=== PATIENT | female | born 1990 | race African-American/Black ===

== ENCOUNTER 2019-02-12 10:48 | Emergency (ER) | payer OTHER ==
[~2019-02-12] VITALS: Ht 162.6 cm; Wt 66.2 kg
[2019-02-12 12:00] VITALS: BP 115/56
--- NOTE | 2019-02-12 13:23 | PHYS DOC ---
Past Medical History Past Medical History: UTI, Other Additional Past Medical Histor: bladder infection and bacterial vaginosis Past Surgical History: No Surgical History Additional Information: Denies smoking Alcohol Use: None Drug Use: None Adult General Chief Complaint Chief Complaint: ABDOMINAL PAIN IN [facility] Patient is a 28 year old female who presents with complaining of lower abdominal pain and vaginal bleeding during . Patient is , A 2 with LMP of December 23 with 1 home positive test and stated she had positive test when she was checked at work for drug screen yesterday. Patient complaining of lower abdominal pain since yesterday as a crampy pain and vaginal spotting that getting heavier today. Patient rated her pain as a moderate pain and denies taking any pain medication. Patient complaining of one episode of vomiting yesterday. Patient denies urinary symptoms, vaginal discharge, dizziness and palpitation, chest pain and shortness of breath. Review of Systems Review of Systems Constitutional: Denies fever or chills [] Eyes: Denies change in visual acuity, redness, or eye pain [] HENT: Denies nasal congestion or sore throat [] Respiratory: Denies cough or shortness of breath [] Cardiovascular: No additional information not addressed in HPI [] GI: Reports abdominal pain, nausea, vomiting, denies bloody stools or diarrhea [ ] : Denies dysuria or hematuria [] Musculoskeletal: Denies back pain or joint pain [] Integument: Denies rash or skin lesions [] Neurologic: Denies headache, focal weakness or sensory changes [] Endocrine: Denies polyuria or polydipsia [] All other systems were reviewed and found to be within normal limits, except as documented in this note. Allergies Allergies Allergies Coded Allergies Type Severity Reaction Last Updated Verified No Known Drug Allergies 12/28/13 No Physical Exam Physical Exam Constitutional: Well developed, well nourished, no acute distress, non-toxic appearance. [] HENT: Normocephalic, atraumatic. Eyes: PERRLA, EOMI, conjunctiva normal, no discharge. [] Neck: Normal range of motion, no tenderness, supple, no stridor. [] Cardiovascular:Heart rate regular rhythm, no murmur [] Lungs & Thorax: Bilateral breath sounds clear to auscultation [] Abdomen: Bowel sounds normal, soft, no tenderness, no masses, no pulsatile masses. Patient did not want to have vaginal exam.[] Skin: Warm, dry, no erythema, no rash. [] Back: No tenderness, no CVA tenderness. [] Extremities: No tenderness, no cyanosis, no clubbing, ROM intact, no edema. [] Neurologic: Alert and oriented X 3, normal motor function, normal sensory function, no focal deficits noted. [] Psychologic: Affect normal, judgement normal, mood normal. [] Current Patient Data Vital Signs Vital Signs Date Time Temp Pulse Resp B/P (MAP) Pulse Ox O2 Delivery O2 Flow Rate FiO2 02/12/19 12:00 98.6 68 16 115/56 (75) 99 Room Air 98.6 Lab Values Laboratory Tests Test 02/12/19 12:00 02/12/19 12:24 POC Urine HCG, Qualitative Hcg negative (Negative) Maternal Serum HCG Beta Subunit < 1 mIU/mL (0-5) EKG EKG [] Radiology/Procedures Radiology/Procedures [] Course & Med Decision Making Course & Med Decision Making Pertinent Labs reviewed. (See chart for details) Evaluation of patient in ER showed 28-year-old male patient complaining of abdominal pain and positive home test with LMP of Dec 23. Patient had unremarkable physical exam with negative urine and serum test and informed about the test result. Patient was not happy about negative test. Patient informed about starting her menstruation and needs to follow up with her primary care physician regarding irregular menstruation. Dragon Disclaimer Dragon Disclaimer This electronic medical record was generated, in whole or in part, using a voice recognition dictation system. Departure Departure Impression: Primary Impression: Irregular menstruation Additional Impression: Negative test Disposition: HOME, SELF-CARE (at 1421) Condition: STABLE Referrals: UNKNOWN PCP NAME (PCP) Patient Instructions: Abnormal Uterine Bleeding Additional Instructions: Drink plenty of liquids Follow-up with your primary care physician in 3-5 days Return to ER if not getting better Problem Qualifiers FIDEL CARPENTER MD Feb 12, 2019 13:23
== END 2019-02-12 13:35 | disposition home or self-care (01) ==
LOC: ER 10:48
DX: N92.6 Irregular menstruation, unspecified (principal); Z32.02 Encounter for pregnancy test, result negative; R11.2 Nausea with vomiting, unspecified; R10.30 Lower abdominal pain, unspecified
CPT/HCPCS: 36415; 81025; 84702; 99283